=== PATIENT | male | born 1980 | race Caucasian/White ===

== ENCOUNTER 2018-03-02 04:32 | Emergency (ER) | payer MEDICAID ==
[~2018-03-02] VITALS: Ht 177.8 cm; Wt 70.0 kg
[2018-03-02] MEDS ORDERED: LORazepam 1MG TABLET ONE (05:17)
[2018-03-02] MEDS ORDERED: LORazepam 1MG TABLET PO ONE (05:30)
[2018-03-02 06:42] VITALS: BP 128/70
== END 2018-03-02 06:44 | disposition home or self-care (01) ==
LOC: ED 04:47
DX: F15.151 Other stimulant abuse with stimulant-induced psychotic disorder with hallucinations (principal)
CPT/HCPCS: 93005; 99283